=== PATIENT | male | born 1980 | race Asian ===

== ENCOUNTER 2019-08-14 00:17 | Emergency (ER) | payer BC, SELFPAY ==
[2019-08-14 00:18] VITALS: BP 144/93; PULSE 75; RESP 18; TEMP 36.7; O2SAT 98; BMI 25.8
--- NOTE | 2019-08-14 00:29 | RAD_ITS ---
STUDY: X-RAY - UNILATERAL RIBS ( RIGHT ) WITH CHEST REASON FOR EXAM: Male, 38 years old. c/o sob and anterior mid rib pain -- snowboarded the other day with multiple falls TECHNIQUE - RIBS: 4 view(s) of the ribs. TECHNIQUE - CHEST: PA chest COMPARISON: None. FINDINGS - RIBS: Normal visualized ribs without a demonstrated fracture. FINDINGS - CHEST: The lungs are clear and expanded. There is no demonstrated pleural abnormality. Normal size heart. Normal mediastinum and munira. Normal visualized pulmonary arteries. Normal visualized aortic arch and descending thoracic aorta. Normal visualized thoracic spine. Normal visualized ribs, clavicles, and shoulders. There is no demonstrated abnormality of the visualized soft tissue structures of the upper abdomen. RAD/Ribs Uni Min 3V w/PA Chest IMPRESSION: RIBS: Normal x-ray examination of the ribs. CHEST: Normal x-ray examination of the chest. Electronically Signed: Landen Samayoa, at 1:25 EST Tel , Service support ,
--- NOTE | 2019-08-14 00:29 | ED.VIS.GEN ---
History of Present Illness Chief Complaint: Shortness of Breath Detail of Chief Complaint: Rib pain Informant: Patient Onset: Days - 5 days Current Severity: Moderate Maximum Severity: Moderate Narrative: Patient presents with right rib injury and shortness of breath. He went snowboarding last weekend and states he fell multiple times injuring his right ribs. He went back to work tonight with repetitive motion and lifting. He states that his chest got tight and he had difficulty breathing. He has had mild cough. No fever. Past Medical History - Allergies and Home Meds Allergies/Adverse Reactions: Allergies No Known Allergies Allergy (Verified 08/14/19 00:20) Primary Care Physician: Rafael Pena DO [Primary Care Provider] - Past Medical History: None Smoking Status: Current some day smoker Review of Systems General: Denies: Chills, Fever Eyes: Denies: Visual changes - bilaterally ENT: Denies: Bilateral ear pain Cardiovascular: Reports: Chest pain Respiratory: Reports: Dyspnea, Cough Gastrointestinal: Denies: Abdominal pain, Nausea, Vomiting, Diarrhea Genitourinary: Denies: Dysuria Musculoskeletal: Denies: Extremity Pain Skin: Denies: Rash Neurological: Denies: Headache Allergy: Denies: Uticaria Physical Exam Vital Signs/Narrative: Vital Signs Temp Pulse Resp BP Pulse Ox 08/14/19 00:18 98.0 F 75 18 144/93 H 98 Inital Vital Signs reviewed: Yes General: Well nourished, Well developed Head: Normocephalic Eyes: Perrl ENT: Moist mucous membranes Neck: Supple Cardiovascular: Regular rate, Regular rhythm Respiratory: No distress, CTA bilaterally, Chest tenderness - Right lower rib tenderness palpation. No crepitus. Abdomen: Soft, Nontender Extremities: Nontender Skin: Normal color, No rash Neurological: Alert, Oriented x3 Psychological: Normal affect Diagnostic/Tx/Re-eval Impressions Ribs w/Chest X-Ray 08/14/19 00:29 IMPRESSION: RIBS: Normal x-ray examination of the ribs. CHEST: Normal x-ray examination of the chest. Electronically Signed: Landen Samayoa, at 1:25 EST Tel , Service support , 08/14/19 00:29 Ribs Uni Min 3V w/PA Chest [RAD] Stat - Medical Decision Making This results discussed with the patient. At this time there is no evidence of displaced rib fracture. Underlying lung is unremarkable. Patient will use Tylenol or Aleve [id number] for pain. ED Disposition - Plan for ED Patient: Disposition: Home or Assisted Living Diagnosis: Rib contusion Instructions: RIB: CONTUSION vs MINOR FRACTURE Referrals: Rafael Pena, DO [Primary Care Provider] - 1 Week if not improving
[2019-08-14 01:55] VITALS: RESP 14
== END 2019-08-14 01:55 | disposition home or self-care (01) ==
PROVIDERS: Emergency Provider Emergency Medicine; PCP Family Medicine
DX: S20.211A Contusion of right front wall of thorax, initial encounter (principal); V00.311A Fall from snowboard, initial encounter; Y93.23 Activity, snow (alpine) (downhill) skiing, snowboarding, sledding, tobogganing and snow tubing; Y92.9 Unspecified place or not applicable; Y99.8 Other external cause status; R29.6 Repeated falls; F17.200 Nicotine dependence, unspecified, uncomplicated
CPT/HCPCS: 71101; 99282